=== PATIENT | female | born 1985 | race Hispanic/Latino ===

== ENCOUNTER 2019-09-21 13:25 | Emergency (ER) | payer OTHER, SELFPAY ==
[2019-09-21 13:51] VITALS: BP 115/67; PULSE 85; RESP 17; TEMP 36.7; O2SAT 97; BMI 25.3
--- NOTE | 2019-09-21 13:56 | DI.RAD.S_ITS ---
PROCEDURE: XR FOOT RT MIN 3V INDICATIONS: pain in lateral foot and swelling, s/p inverted TECHNIQUE: 3 views of the foot were acquired. COMPARISON: None. FINDINGS: Bones: No fractures or dislocations. No suspicious bony lesions. Soft tissues: No tibiotalar joint effusion. Achilles tendon appears normal. IMPRESSION: No displaced fractures are seen on these plain films. If there is focal tenderness, or other clinical concern for a fracture not seen on these images in this patient with a given history of trauma, please consider a dedicated CT or a short-term followup plain film series (in 1-2 weeks) for further evaluation. Dictated by: Darron Garcia M.D. on 09/21/2019 at 13:20 Approved by: Darron Garcia M.D. on 09/21/2019 at 13:20
[2019-09-21] MEDS: ACETAMINOPHEN 325 MG TABLET 650 MG PO (14:15)
--- NOTE | 2019-09-21 14:31 | ED.LOWEXIN ---
HPI - Extremity Injury (Lower) <PATRICK Al - Last Filed: 09/21/19 17:45> General Chief Complaint: Extremity Injury, Lower Stated Complaint: POSSIBLE FRACTURE OF RIGHT ANKLE Time Seen by Provider: 09/21/19 13:41 Source: patient Mode of arrival: Family Vehicle Limitations: no limitations History of Present Illness HPI Narrative: This is a 34-year-old female, nonsmoker, presents to ED with significant other with chief complain of right lateral foot pain and swelling. Patient states she was jumping up to throw a ball and landed on inverted her right foot at 12:30 p.m.. She heard cracking noise immediately after. Patient denies pain in right ankle. Patient felt severe pain and almost passed out when she tried to stand and bear her weight. Patient reports intact sensation distally and reports difficulty moving her foot and toes due to pain. Patient had not taken any medications before coming into ED. patient denies previous injury to affected foot or ankle. Related Data Allergies Allergy/AdvReac Type Severity Reaction Status Date / Time No Known Drug Allergies Allergy Verified 09/21/19 13:56 Review of Systems <PATRICK Al - Last Filed: 09/21/19 17:45> Review of Systems Narrative: General: Denies fever, chills, fatigue, malaise, sweats. HEENT: Denies sinus pain, ear pain, sore throat, difficulty swallowing, dizziness. Respiratory: Denies dyspnea, cough, wheezing, hemoptysis, sputum. Cardiovascular: Denies chest pain, palpitations, orthopnea, edema. Gastrointestinal: Denies nausea, vomiting, abdominal pain, diarrhea, constipation, melena. : Denies dysuria, frequency, incontinence, hematuria, urinary retention. Musculoskeletal: See HPI Skin: Denies rash, skin lesions, or other. Neurologic: Denies weakness, headache, numbness, change in speech, confusion, seizures, incoordination. Psychiatric: No concerning psychosocial issues. 12-point review of systems is negative except for those stated above. Patient History <PATRICK Al - Last Filed: 09/21/19 17:45> Medical History No significant past medical history (Acute) Surgical History No pertinent past surgical history (Acute) Social History Smoking Status: Never smoker Smoking Status: Never smoker alcohol intake frequency: holidays/special occasions only Substance Use Type: does not use Exam <PATRICK Al - Last Filed: 09/21/19 17:45> Narrative Exam Narrative: General appearance: well developed, well nourished, in no acute distress. Head: normocephalic, atraumatic, no scalp lesions, non-tender. ENT: Hearing grossly intact. Airway patent. Neck/Thyroid: neck supple, full range of motion, no visible masses or meningeal signs. No JVD, non-tender without lymphadenopathy. Skin: no suspicious rashes, lesions over visible areas. Warm and dry and appropriate color for ethnicity. Heart: no clubbing, no cyanosis, no edema. Lungs: Breathing even and unlabored. No stridor. No accessory muscles used. Able to speak in full sentences. Chest: normal shape and expansion. Abdomen: non-obese, non-distended. Neurologic: alert and oriented. Cognitive exam, OTORHINOLARYNGOLOGIST and PNS grossly intact on informal exam. Psych: good eye contact, normal affect. Initial Vital Signs Initial Vital Signs: Vital Signs Temperature 98.1 F 09/21/19 13:51 Pulse Rate 85 09/21/19 13:51 Respiratory Rate 17 09/21/19 13:51 Blood Pressure 115/67 09/21/19 13:51 Pulse Oximetry 97 09/21/19 13:51 Extrem Right lower extremity: ankle Details: normal to inspection; no tenderness and no swelling and foot Details: normal capillary refill, tenderness Location: of the dorsal foot and of the lateral foot, toes with normal ROM, edema (Localized about 2 cm at lateral midfoot), vascular exam Details: dorsalis pedis pulse present, tendon exam Details: active flexion abnormal (painful) and active extension abnormal (painful) and motor-sensory exam Details: light-touch normal; no unusual warmth, no abrasion, no laceration, no ecchymosis, no crepitus and no puncture wound <Carol Newberry DO - Last Filed: 09/25/19 07:16> Initial Vital Signs Initial Vital Signs: Vital Signs Temperature 98.1 F 09/21/19 13:51 Pulse Rate 85 09/21/19 13:51 Respiratory Rate 17 09/21/19 13:51 Blood Pressure 115/67 09/21/19 13:51 Pulse Oximetry 97 09/21/19 13:51 Procedures <PATRICK Al - Last Filed: 09/21/19 17:45> Orthopedic Splinting/Casting Injury #1: Side: right Lower Extremity Injury Location: foot Lower Extremity Immobilizer: Maged wrap Other Orthopedic Equipment: crutches Post splinting neuro exam: intact Post splinting vascular exam: intact Placed by: Nursing Scores <PATRICK Al - Last Filed: 09/21/19 17:45> GCS [place] coma scale eye opening: Spontaneous [place] coma scale verbal response: Orientated [place] coma scale motor response: Obey commands Leta coma scale total score: 15 Course <PATRICK Al - Last Filed: 09/21/19 17:45> Orders Ordered: Discontinued Medications Acetaminophen (Tylenol) 650 mg PO NOW ONE Stop: 09/21/19 13:57 Last Admin: 09/21/19 14:15 Dose: 650 mg Documented by: NICHOLE Ibuprofen (Advil) 400 mg PO NOW ONE Stop: 09/21/19 13:57 Last Admin: 09/21/19 15:49 Dose: 400 mg Documented by: NICHOLE Vital Signs Vital signs: Vital Signs - 8 hr 09/21/19 13:51 09/21/19 15:39 Temperature 98.1 F 97.9 F Pulse Rate 85 96 H Respiratory Rate 17 22 Blood Pressure 115/67 110/66 Pulse Oximetry 97 98 <Carol Newberry DO - Last Filed: 09/25/19 07:16> Orders Ordered: Discontinued Medications Acetaminophen (Tylenol) 650 mg PO NOW ONE Stop: 09/21/19 13:57 Last Admin: 09/21/19 14:15 Dose: 650 mg Documented by: NICHOLE Ibuprofen (Advil) 400 mg PO NOW ONE Stop: 09/21/19 13:57 Last Admin: 09/21/19 15:49 Dose: 400 mg Documented by: NICHOLE Vital Signs Vital signs: Vital Signs - 8 hr 09/21/19 13:51 09/21/19 15:39 Temperature 98.1 F 97.9 F Pulse Rate 85 96 H Respiratory Rate 17 22 Blood Pressure 115/67 110/66 Pulse Oximetry 97 98 MDM - Extremity Injury (Lower) <PATRICK Al - Last Filed: 09/21/19 17:45> Differential Diagnosis Differential diagnosis: Likely other (Foot sprain/strain, foot fracture) Medical Records Attestation: I reviewed the patient's medical records. Imaging Data XR-Foot Right: Radiologist's Impression: [address] [address] XRay Report Signed Patient: Clive Wetzel#: [id number] : 1985Acct:[id number] Age/Sex: 34 / FDate of Service: 09/21/19 Loc: ED Accession Number: [id number] Procedure: XR foot RT min 3V Ordering Provider: Jerome Wilson PROCEDURE: XR FOOT RT MIN 3V INDICATIONS: pain in lateral foot and swelling, s/p inverted TECHNIQUE: 3 views of the foot were acquired. COMPARISON: None. FINDINGS: Bones: No fractures or dislocations. No suspicious bony lesions. Soft tissues: No tibiotalar joint effusion. Achilles tendon appears normal. IMPRESSION: No displaced fractures are seen on these plain films. If there is focal tenderness, or other clinical concern for a fracture not seen on these images in this patient with a given history of trauma, please consider a dedicated CT or a short-term followup plain film series (in 1-2 weeks) for further evaluation. Dictated by: Darron Garcia M.D. on 09/21/2019 at 13:20 Approved by: Darron Garcia M.D. on 09/21/2019 at 13:20 [facility] Narrative Medical decision making narrative: This is a 34 year female who presents to ED after she jumped up and landed on inverted right foot today. Patient reports pain on left lateral foot and small localized swelling on left lateral foot. Distal circulation and sensation was intact. Patient was able to move her toes minimally due to pain. Patient was medicated with Tylenol and Motrin with ice pack on affected food for pain and swelling. X-ray test on right foot does not show acute findings such as fractures or dislocation. Applied Maged wrap on affected foot and crutch teaching was done after he was fitted for patient. Was able to demonstrate back the appropriate crutch use. Patient advised to use RICE therapy and to use [id number] Tylenol and or Motrin as needed for discomfort. All questions were answered and patient and significant other expressed understanding. Advised to follow up with primary care physician next week and if pain is not improving next 10-14 days, to consider repeat imaging test or follow-up with [facility]. Patient verbalized understanding in agreement with treatment plan. Discharge Plan Departure Patient Disposition: Home Clinical Impression: Right foot sprain Qualifiers: Encounter type: initial encounter Qualified Code(s): S93.601A - Unspecified sprain of right foot, initial encounter Discharge Date/Time: 09/21/19 15:56 Instructions: DI for Foot Sprain Activity Restrictions/Additional Instructions: You have been diagnosed with [right foot sprain. Foot x-ray test does not show acute findings such as fractures or dislocation today. You were treated with Maged wrap and crutches. Your medicated with Tylenol and Motrin while in ED.]. What to do: *Take your medications as directed. You can use ibuprofen/Motrin/Aleve for pain as needed with food to decrease GI irritation. Also you can add Tylenol 650-1000 mg as needed up to 3 to 4 times a day. Please use RICE therapy for pain, swelling and inflammation. *Follow up with your primary care provider in 2-3 days, call for an appointment. Let them know you were seen in the ED and that we asked you to be seen in follow up. If your pain is not improving next 10-14 days, please consider repeating imaging test done on affected foot. *Return to ED if you have any new, worsening, or concerning symptoms, such as [chest pain, breathing difficulty, unable to tolerate fluids, worsening pain, numbness/tingling/weakness to affected foot or any acute concerns]. Referrals: [facility] [Provider Group] <Carol Newberry DO - Last Filed: 09/25/19 07:16> [facility] ED Attending Jackie Attestation: I was immediately available in the department for consultation. Documentation has been reviewed. I agree with assessment and plan.
[2019-09-21 15:39] VITALS: BP 110/66; PULSE 96; RESP 22; TEMP 36.6; O2SAT 98
[2019-09-21] MEDS: IBUPROFEN 400 MG TABLET PO (15:49)
--- NOTE | 2019-09-21 15:49 | PC.NURSE ---
Patient and caregiver instructed on ENEDINA wrap, use of crutches and care of sprain at home. Patient and caregiver verbalized understanding.
== END 2019-09-21 15:56 | disposition home or self-care (01) ==
PROVIDERS: Emergency Provider Nurse Practitioner Family
DX: S93.601A Unspecified sprain of right foot, initial encounter (principal)
CPT/HCPCS: 73630; 99283